=== PATIENT | male | born 1980 | race African-American/Black ===

== ENCOUNTER 2022-08-02 08:20 | Observation (INO) | payer OTHER, SELFPAY ==
[2022-08-02] MEDS ORDERED: FENTANYL 50 MCG/ML 1 ML VIAL ONE (08:27)
[2022-08-02] MEDS ORDERED: Boostrix 0.5 ML (Tdap) VIAL (>/=7 yrs of age) ONE (08:54)
[2022-08-02 09:16] LABS: #Basophils 0.1 thou/uL (0.0-0.2); #Eosinphils 0.1 thou/uL (0.0-0.7); #Lymphocytes 1.6 thou/uL (1.20-3.40); #Monocytes 1.3 thou/uL (0.11-0.59); #Neutrophils 8.5 thou/uL (1.40-6.50); %Basophils 0.6 % (0.0-1.0); %Eosinophils 0.6 % (0.0-10.0); %Neutrophils 73.8 % (42.0-75.0); Hemoglobin 13.3 g/dL (14.0-18.0); Mean Corpuscular HGB CONC 31.3 g/dL (32.0-36.0); Mean Corpuscular Hemoglobin 29.6 pg (27.0-31.0); Mean Corpuscular Volume 94.6 fl (78.0-98.0); Mean Platelet Volume 8.6 fL (7.4-10.4); Platelet Count 170 10x3/uL (130-400); RBC Distribution Width 12.6 % (11.5-14.5); Red Blood Cell (RBC) Count 4.48 mill/uL (4.70-6.10); White Blood Cell (WBC) Count 11.5 10x3/uL (4.8-10.8)
[2022-08-02 09:45] LABS: ALT (SGPT) 28 U/L (8-55); AST (SGOT) 29 U/L (5-34); Alkaline Phosphatase 53 U/L (40-110); Anion Gap 13 mmol/L (10-20); BUN (Urea Nitrogen) 15 mg/dL (8.9-20.6); Bilirubin, Total 0.4 mg/dL (0.2-1.2); Calc. Creatinine Clearance 0 mL/min (70-130); Calcium 9.5 mg/dL (7.8-10.44); Carbon Dioxide 21 mmol/L (22-29); Chloride 104 mmol/L (98-107); Estimated GFR 80; Globulin 2.8 g/dL (2.4-3.5); Glucose 128 mg/dL (70-105); Potassium 4.2 mmol/L (3.5-5.1); Protein, Total 6.8 g/dL (6.0-8.3); Sodium 134 mmol/L (136-145)
[2022-08-02] MEDS ORDERED: Dextrose 50% Abboject 50 ML SYRINGE SLOW IVP PRN (10:01)
[2022-08-02] MEDS ORDERED: Dextrose 5% in Water 1,000 ML IV PRN (10:01)
[2022-08-02] MEDS ORDERED: Ipratropium/Albuterol 3 ML NEB NEB PRN (10:01)
[2022-08-02] MEDS ORDERED: Ondansetron PF 4 MG/2 ML Vial IVP PRN (10:01)
[2022-08-02] MEDS ORDERED: Cyclobenzaprine 10 MG TAB PO PRN (10:03)
[2022-08-02] MEDS ORDERED: Ketorolac Tromethamine 30 MG/ML VIAL IVP SCH (10:15)
[2022-08-02 11:17] VITALS: BMI 27.3
[2022-08-02] MEDS: traMADol HCl 50 MG TAB PO SCH ×2 (11:35→17:26)
[2022-08-02] MEDS: Acetaminophen 500 MG TAB PO SCH ×2 (11:35→17:27)
[2022-08-02] MEDS: Morphine 4 MG/ML VIAL SLOW IVP PRN ×2 (12:15→21:33)
[2022-08-02] MEDS ORDERED: ISOVUE-370 76%-LOCM 1 ML ONE (15:23)
[2022-08-02] MEDS: Gabapentin 300 MG CAP PO SCH ×2 (15:34→21:35)
[2022-08-02] MEDS: Ipratropium/Albuterol 3 ML NEB NEB SCH ×2 (16:30→18:55)
[2022-08-02] MEDS: Ketorolac Tromethamine 30 MG/ML VIAL IVP SCH (17:27)
[2022-08-02] MEDS: Famotidine/PF 20 mg/2ml Vial SLOW IVP SCH (21:34)
[2022-08-02] MEDS: Senokot S 8.6-50 MG TAB PO SCH (21:35)
[2022-08-03] MEDS: Ketorolac Tromethamine 30 MG/ML VIAL IVP SCH ×2 (00:49→05:28)
[2022-08-03] MEDS: Acetaminophen 500 MG TAB PO SCH ×3 (00:50→12:54)
[2022-08-03] MEDS: traMADol HCl 50 MG TAB PO SCH ×3 (00:50→12:52)
[2022-08-03] MEDS: Morphine 4 MG/ML VIAL SLOW IVP PRN (02:19)
[2022-08-03 07:11] LABS: #Basophils 0.1 thou/uL (0.0-0.2); #Eosinphils 0.3 thou/uL (0.0-0.7); #Lymphocytes 1.9 thou/uL (1.20-3.40); #Monocytes 0.9 thou/uL (0.11-0.59); #Neutrophils 5.3 thou/uL (1.40-6.50); %Basophils 0.7 % (0.0-1.0); %Eosinophils 3.2 % (0.0-10.0); %Lymphocytes 22.5 % (21.0-51.0); %Neutrophils 62.5 % (42.0-75.0); Hemoglobin 12.1 g/dL (14.0-18.0); Mean Corpuscular HGB CONC 31.1 g/dL (32.0-36.0); Mean Corpuscular Hemoglobin 29.4 pg (27.0-31.0); Mean Corpuscular Volume 94.5 fl (78.0-98.0); Mean Platelet Volume 8.3 fL (7.4-10.4); Platelet Count 170 10x3/uL (130-400); RBC Distribution Width 12.4 % (11.5-14.5); Red Blood Cell (RBC) Count 4.11 mill/uL (4.70-6.10); White Blood Cell (WBC) Count 8.4 10x3/uL (4.8-10.8)
[2022-08-03] MEDS: Ipratropium/Albuterol 3 ML NEB NEB SCH ×2 (07:25→13:09)
[2022-08-03 07:30] LABS: Anion Gap 14 mmol/L (10-20); BUN (Urea Nitrogen) 18 mg/dL (8.9-20.6); Calc. Creatinine Clearance 104 mL/min (70-130); Calcium 9.1 mg/dL (7.8-10.44); Carbon Dioxide 24 mmol/L (22-29); Chloride 102 mmol/L (98-107); Estimated GFR 70; Glucose 140 mg/dL (70-105); Magnesium 2.1 mg/dL (1.6-2.6); Phosphorus 4.1 mg/dL (2.3-4.7); Potassium 4.5 mmol/L (3.5-5.1); Sodium 135 mmol/L (136-145)
[2022-08-03] MEDS ORDERED: Polyethylene Glycol 3350 17 GM Packet PO SCH (09:00)
[2022-08-03] MEDS: Famotidine/PF 20 mg/2ml Vial SLOW IVP SCH (09:44)
[2022-08-03] MEDS: Senokot S 8.6-50 MG TAB PO SCH (09:44)
[2022-08-03] MEDS: Gabapentin 300 MG CAP PO SCH (09:45)
[2022-08-03 11:13] VITALS: BP 120/85; TEMP 97.6
[2022-08-03] MEDS ORDERED: Ibuprofen 200 MG TAB PO SCH (14:00)
== END 2022-08-03 14:10 | disposition home or self-care (01) ==
LOC: ERS 08:20 → SJJU 10:01
PROVIDERS: ADMIT Surgery; ATTEND Surgery
DX: S27.0XXA Traumatic pneumothorax, initial encounter (principal); S22.41XA Multiple fractures of ribs, right side, initial encounter for closed fracture; G89.11 Acute pain due to trauma; F17.210 Nicotine dependence, cigarettes, uncomplicated; Z20.822 Contact with and (suspected) exposure to COVID-19; V86.55XA Driver of 3- or 4- wheeled all-terrain vehicle (ATV) injured in nontraffic accident, initial encounter
CPT/HCPCS: 36415; 70450; 71045; 71260; 72125; 74177; 80048; 80053; 83735; 84100; 84484; 85025; 90471; 90715; 93005; 94640; 96374; 96375; 96376; G0378; G0390; J1885; J2270; J3010; J7620; Q9966; S0028; U0003; U0005

== ENCOUNTER 2022-08-05 10:22 | Observation (INO) | payer OTHER, SELFPAY ==
[~2022-08-05 10:22] MED LIST: Iopamidol-370 76% 500 ML 1 ML ONE
[2022-08-05] MEDS ORDERED: Ketorolac Tromethamine 30 MG/ML VIAL ONE (12:28)
[2022-08-05] MEDS ORDERED: Morphine 4 MG/ML VIAL ONE (12:28)
[2022-08-05 13:40] LABS: CKMB 2.3 ng/mL (0-6.6)
[2022-08-05 14:39] LABS: #Basophils 0.1 thou/uL (0.0-0.2); #Eosinphils 0.3 thou/uL (0.0-0.7); #Lymphocytes 2.1 thou/uL (1.20-3.40); #Monocytes 1.1 thou/uL (0.11-0.59); #Neutrophils 5.7 thou/uL (1.40-6.50); %Basophils 0.7 % (0.0-1.0); %Eosinophils 2.9 % (0.0-10.0); %Lymphocytes 22.7 % (21.0-51.0); %Monocytes 11.8 % (0.0-10.0); %Neutrophils 61.9 % (42.0-75.0); Hemoglobin 13.7 g/dL (14.0-18.0); Mean Corpuscular HGB CONC 32.2 g/dL (32.0-36.0); Mean Corpuscular Hemoglobin 29.3 pg (27.0-31.0); Mean Corpuscular Volume 91.1 fl (78.0-98.0); Mean Platelet Volume 9.2 fL (7.4-10.4); Platelet Count 183 10x3/uL (130-400); RBC Distribution Width 12.3 % (11.5-14.5); Red Blood Cell (RBC) Count 4.66 mill/uL (4.70-6.10); White Blood Cell (WBC) Count 9.2 10x3/uL (4.8-10.8)
[2022-08-05 15:13] LABS: ALT (SGPT) 25 U/L (8-55); AST (SGOT) 24 U/L (5-34); Albumin 4.2 g/dL (3.5-5.0); Alkaline Phosphatase 70 U/L (40-110); Anion Gap 17 mmol/L (10-20); BUN (Urea Nitrogen) 15 mg/dL (8.9-20.6); Bilirubin, Total 0.4 mg/dL (0.2-1.2); Calc. Creatinine Clearance 0 mL/min (70-130); Calcium 9.8 mg/dL (7.8-10.44); Carbon Dioxide 24 mmol/L (22-29); Chloride 101 mmol/L (98-107); Estimated GFR 79; Glucose 88 mg/dL (70-105); Protein, Total 7.2 g/dL (6.0-8.3); Sodium 137 mmol/L (136-145)
[2022-08-05] MEDS ORDERED: Aspirin Chewable 81 MG TAB ONE (15:30)
[2022-08-05] MEDS ORDERED: Nitroglycerin 0.4 MG TAB (25 Tab Bottle) SL PRN (15:47)
[2022-08-05 17:29] VITALS: BMI 26.9
[2022-08-05 17:36] LABS: Troponin I 0.088 ng/mL (< 0.028)
[2022-08-05] MEDS ORDERED: HYDROcodone/Acetaminophen 5/325 mg Tablet PO PRN (17:50)
[2022-08-05] MEDS ORDERED: Ondansetron ODT 4 MG TAB PO PRN (17:50)
[2022-08-05] MEDS ORDERED: Acetaminophen 325 MG TAB PO PRN (17:50)
[2022-08-05] MEDS ORDERED: Cyclobenzaprine 10 MG TAB PO PRN (18:10)
[2022-08-05] MEDS ORDERED: traMADol HCl 50 MG TAB PO PRN (18:10)
[2022-08-05 19:07] LABS: Magnesium 1.9 mg/dL (1.6-2.6)
[2022-08-05 19:13] LABS: Troponin I 0.063 ng/mL (< 0.028)
[2022-08-05] MEDS: Senokot S 8.6-50 MG TAB PO SCH (20:55)
[2022-08-05] MEDS: Gabapentin 300 MG CAP PO SCH (20:56)
[2022-08-06] MEDS: Acetaminophen 500 MG TAB PO SCH ×3 (04:12→12:24)
[2022-08-06 05:25] LABS: #Basophils 0.1 thou/uL (0.0-0.2); #Eosinphils 0.4 thou/uL (0.0-0.7); #Lymphocytes 2.7 thou/uL (1.20-3.40); #Monocytes 0.9 thou/uL (0.11-0.59); %Basophils 1.2 % (0.0-1.0); %Eosinophils 5.1 % (0.0-10.0); %Lymphocytes 33.2 % (21.0-51.0); %Monocytes 10.9 % (0.0-10.0); %Neutrophils 49.7 % (42.0-75.0); Hemoglobin 12.3 g/dL (14.0-18.0); Mean Corpuscular HGB CONC 33.5 g/dL (32.0-36.0); Mean Corpuscular Hemoglobin 30.3 pg (27.0-31.0); Mean Corpuscular Volume 90.4 fl (78.0-98.0); Mean Platelet Volume 8.4 fL (7.4-10.4); Platelet Count 178 10x3/uL (130-400); Red Blood Cell (RBC) Count 4.06 mill/uL (4.70-6.10); White Blood Cell (WBC) Count 8.1 10x3/uL (4.8-10.8)
[2022-08-06 05:46] LABS: Anion Gap 14 mmol/L (10-20); BUN (Urea Nitrogen) 24 mg/dL (8.9-20.6); Calc. Creatinine Clearance 109 mL/min (70-130); Calcium 9.2 mg/dL (7.8-10.44); Carbon Dioxide 23 mmol/L (22-29); Cardiac Risk 6.6 (Less than 4.5); Chloride 103 mmol/L (98-107); Cholesterol 263 mg/dl (< 200 Desired); Estimated GFR 76; Glucose 125 mg/dL (70-105); HDL Cholesterol 40 mg/dL (>60 Neg Risk); LDL Cholesterol, Calculated 168 mg/dL; Sodium 136 mmol/L (136-145); Triglycerides 275 mg/dL (Less than 150)
[2022-08-06 05:51] LABS: Troponin I 0.031 ng/mL (< 0.028)
[2022-08-06] MEDS: Gabapentin 300 MG CAP PO SCH ×2 (08:33→15:09)
[2022-08-06] MEDS: Senokot S 8.6-50 MG TAB PO SCH (08:34)
[2022-08-06] MEDS ORDERED: Polyethylene Glycol 3350 17 GM Packet PO SCH (09:00)
[2022-08-06 12:14] VITALS: TEMP 97.9
[2022-08-06 12:38] VITALS: BP 142/97
== END 2022-08-06 16:06 | disposition home or self-care (01) ==
LOC: ERS 10:22 → 2SW 17:03
PROVIDERS: ADMIT Internal Medicine; ATTEND Internal Medicine
DX: S22.41XA Multiple fractures of ribs, right side, initial encounter for closed fracture (principal); K59.00 Constipation, unspecified; K76.0 Fatty (change of) liver, not elsewhere classified; F17.210 Nicotine dependence, cigarettes, uncomplicated; S90.01XA Contusion of right ankle, initial encounter; I08.8 Other rheumatic multiple valve diseases; Z79.899 Other long term (current) drug therapy; V86.55XA Driver of 3- or 4- wheeled all-terrain vehicle (ATV) injured in nontraffic accident, initial encounter
CPT/HCPCS: 36415; 71046; 71275; 74174; 80048; 80053; 80061; 82553; 83735; 83880; 84484; 85025; 93005; 93306; 94760; 96374; 96375; G0378; J1885; J2270; Q9967

== ENCOUNTER 2024-01-24 14:14 | Emergency (ER) | payer SELFPAY ==
[2024-01-24] MEDS ORDERED: HYDROcodone/Acetaminophen 5/325 mg Tablet ONE (15:15)
== END 2024-01-24 17:40 | disposition home or self-care (01) ==
LOC: ERS 14:14
DX: S52.132A Displaced fracture of neck of left radius, initial encounter for closed fracture (principal); S52.122A Displaced fracture of head of left radius, initial encounter for closed fracture; S62.002A Unspecified fracture of navicular [scaphoid] bone of left wrist, initial encounter for closed fracture; F17.210 Nicotine dependence, cigarettes, uncomplicated; W18.09XA Striking against other object with subsequent fall, initial encounter; Y93.61 Activity, american tackle football; Y92.39 Other specified sports and athletic area as the place of occurrence of the external cause
CPT/HCPCS: 99283